=== PATIENT | male | born 2005 | race Caucasian/White ===

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

== ENCOUNTER 2025-01-29 15:53 | Outpatient (RCR) | payer BC, SELFPAY ==
--- NOTE | 2025-01-29 17:39 | OPREHPOC ---
Outpatient Therapy Plan of Care This is a Multidisciplinary Plan of Care that may contain components documented by all disciplines (PT, OT, and ST.) PT Problem 1 PT Problem #1 Knowledge Deficit PT Goal 1 Goal / Goal Update Independent and compliant with HEP. Target Visit 2 PT Problem 2 PT Problem #2 Impaired Strength PT Goal 1 Goal / Goal Update Pt to improve gross R shoulder strength to 5/5. Target Visit 10 PT Problem 3 PT Problem #3 Impaired Range of Motion PT Goal 1 Goal / Goal Update Pt to improve R shoulder functional IR ROM to lumbar spine. Pt to demonstrate restored scapular mechanics to improve ability to elevate and IR the shoulder. Target Visit 10 PT Problem 4 PT Problem #4 Impaired Functional Mobility PT Goal 1 Goal / Goal Update Pt to report 20% reduction in perceived ability on Quick DASH. Pt to be able to return to [employer] without pain. Target Visit 10
--- NOTE | 2025-01-29 17:39 | PTOPEVAL1 ---
Assessment and note entered by Trice Faith, PT Evaluation Information Assessment Status Evaluation ICD-10 Condition Codes (PT) Pain in right shoulder M25.511 Onset 06/01/2024 Subjective Information Pt reports he does [employer] and works out at the gym and reports his R shoulder pain started in Jun. He notes his pain is located in the back of his shoulder and he notes discomfort and an uneven feeling when carrying heavy loads (more than 40-50 lbs). He goes to the gym 5x per week but feels like he'll have to stop going so much due to his pain, and he's stopped [employer] because of his pain. 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 He did go see his chiropractor who told him it may be a torn muscle. Reported Pain Level Pain Score 0: Self Report Assessment PT Clinical Summary Mr. Xiong is a 19 yo male presenting to skilled PT evaluation for R shoulder pain. His pain worsens with elevation of the arm and pain is located in the area of the latissimus dorsi muscle along the inferior angle and lateral border of the R scapula. This pain is reproduced with palpation and palpable trigger points are felt. Pt 's shoulder AROM is adequate in flexion and abduction however pt experiences pain with these motions, IR is also severely restricted with production of pain. Upon scapular assessment pt's scapula appears to be locked on the thorax and will not upward or downwardly rotate with shoulder movement as it should. In addition pt demonstrates moderate strength deficits in the R rotator cuff along with positive special tests indicating possible supraspinatus tendonitis and impingement syndrome. He will benefit from skilled PT intervention to improve shoulder/scapular strength, scapular mobility and functional use of the arm to return to full performance at work and recreational activities such as the gym and [employer]. Educated pt to hold gym for now to reduce continued stress to the shoulder. Plan of Care Interventions Electrical Stimulation,Hot Pack/Cold Pack,Manual Therapy,Neuro Re-education,Patient/Caregiver Education,Therapeutic Activities,Therapeutic Exercise Other Interventions TPDN PT Services Indicated Yes Treatment Frequency and 2x/week for 10 visits Duration These treatments will address the objective and functional deficits as defined above. The patient will be advanced safely and appropriately in order for the patient to progress towards his/her prior level of function. Additional exercises will be introduced and as well as a comprehensive home exercise program upon discharge, if needed, ?to ensure carryover of functional gains achieved in the clinic. This treatment plan has been reviewed and agreement upon by the patient.
--- NOTE | 2025-02-25 15:53 | PCPTNOTE ---
Cancelled session. Reports he forgot about his appointment.
--- NOTE | 2025-03-11 16:36 | OPREHPOC ---
Outpatient Therapy Plan of Care This is a Multidisciplinary Plan of Care that may contain components documented by all disciplines (PT, OT, and ST.) PT Problem 1 PT Problem #1 Knowledge Deficit PT Goal 1 Goal / Goal Update Independent and compliant with HEP. Target Visit 2 Progress Met PT Problem 2 PT Problem #2 Impaired Strength PT Goal 1 Goal / Goal Update Pt to improve gross R shoulder strength to 5/5. Target Visit 10 Progress Met PT Problem 3 PT Problem #3 Impaired Range of Motion PT Goal 1 Goal / Goal Update Pt to improve R shoulder functional IR ROM to lumbar spine. Pt to demonstrate restored scapular mechanics to improve ability to elevate and IR the shoulder. Target Visit 10 Progress Met PT Problem 4 PT Problem #4 Impaired Functional Mobility PT Goal 1 Goal / Goal Update Pt to report 20% reduction in perceived ability on Quick DASH. -met Pt to be able to return to [facility] without pain. - not met due to time constraints with schoolwork Target Visit 10 Progress Partially Met
--- NOTE | 2025-03-11 16:37 | PTOPDC ---
Assessment and note entered by Trice Faith, PT Evaluation Information Assessment Status Discharge ICD-10 Condition Codes (PT) Pain in right shoulder M25.511 Onset 06/01/2024 Subjective Information Rayray reports he hasn't had any pain during his last couple sessions and he's been able to work out at the gym and lift heavy loads at work without any pain. He has not gotten back into [employer] yet due to school taking up a lot of his time but he feels like he wouldn't have any pain with it if he did start it back up. Overall he feels pain-free and ready to discharge from therapy. Reported Pain Level Pain Score 0: Self Report Assessment PT Clinical Summary Mr. Xiong has attended 10 skilled PT visits for R shoulder/thoracic region pain in the area of the latissimus dorsi. Since starting therapy he no longer has pain and for the last couple weeks he's been able to fully participate in lifting heavy loads at work and exercise at the gym without any pain. He demonstrates improved R shoulder strength and ability to reach behind his back and does so without pain. He has met or partially met all therapeutic goals and is appropriate for discharge from skilled PT this date. Plan of Care PT Services Indicated No
== END 2025-03-11 20:00 | disposition home or self-care (01) ==
LOC: CHSPT 15:53
DX: M25.511 Pain in right shoulder (principal)
CPT/HCPCS: 97110; 97112; 97140; 97162